=== PATIENT | female | born 1975 | race Caucasian/White ===

== ENCOUNTER 2017-02-14 12:54 | Emergency (ER) | payer OTHER ==
[2017-02-14 13:21] VITALS: RESP 16
[2017-02-14] MEDS ORDERED: predniSONE 20 MG TAB PO STA (14:23)
--- NOTE | 2017-02-14 14:26 | ED ---
ENT HPI - General Chief complaint: ENT Stated complaint: ENT Time Seen by Provider: 02/14/17 14:19 Source: patient Mode of arrival: ambulatory Limitations: no limitations - History of Present Illness Initial comments: This 41-year-old white female presents complaining of a sore throat and left earache which is been present for 3 days. She denies any fevers. She has had an occasional cough. She's had increased pain with any swallowing or eating. She denies any previous similar incidents. No other complaints or modifying factors. - Related Data Home Medications Medication Instructions Recorded Confirmed Cetirizine HCl [Zyrtec] 10 mg PO DAILY@2130 02/14/17 02/14/17 FLUoxetine HCL [PROzac] 20 mg PO DAILY@212902/14/17 02/14/17 Ibuprofen [Motrin] 800 mg PO Q6HR PRN 02/14/17 02/14/17 Lisinopril [Zestril] 20 mg PO DAILY@0 02/14/17 02/14/17 Previous Rx's Medication Instructions Recorded Amoxicillin 500 mg PO Q8H #30 capsule 02/14/17 predniSONE 20 mg PO BID #10 tab 02/14/17 Allergies Allergy/AdvReac Type Severity Reaction Status Date / Time No Known Allergies Allergy Verified 02/14/17 14:18 Review of Systems ROS Statement: Those systems with pertinent positive or pertinent negative responses have been documented in the HPI. ROS Other: All systems not noted in ROS Statement are negative. Past Medical History Past Medical History: Hypertension Additional Past Medical History / Comment(s): allergies History of Any Multi-Drug Resistant Organisms: None Reported Past Surgical History: Tubal Ligation Past Psychological History: Depression Smoking Status: Current every day smoker Past Alcohol Use History: Rare Past Drug Use History: None Reported General Exam Limitations: no limitations Head exam: Present: atraumatic, normocephalic Eye exam: Present: normal appearance ENT exam: Present: mucous membranes moist, TM's normal bilaterally, other ( Posterior oropharynx is erythematous. No exudates noted. No peritonsillar abscess identified.) Neck exam: Present: normal inspection, lymphadenopathy. Absent: meningismus Respiratory exam: Present: normal lung sounds bilaterally. Absent: respiratory distress Cardiovascular Exam: Present: regular rate, normal rhythm Psychiatric exam: Present: normal affect, normal mood Skin exam: Present: intact. Absent: rash Course Vital Signs 02/14/17 13:18 Temperature 99.7 F H Pulse Rate 96 Respiratory 16 Rate Blood Pressure 116/74 O2 Sat by Pulse 97 Oximetry Medical Decision Making - Medical Decision Making The patient was seen and examined. It appears that she does have a pharyngitis but there is no evidence of otitis media at this time. It is felt as though she benefit from the following disposition and leaves in no distress. Disposition Clinical Impression: Pharyngitis Disposition: HOME SELF-CARE Condition: Good Instructions: Pharyngitis (ED) Additional Instructions: You also may take Tylenol and/or Motrin if needed for any pain or fever. Prescriptions: Amoxicillin 500 mg PO Q8H #30 capsule predniSONE 20 mg PO BID #10 tab Referrals: Alysia Shaw MD [Primary Care Provider] - 1-2 days Time of Disposition: 14:26
[2017-02-14 14:39] VITALS: BP 118/75; PULSE 85; TEMP 97.1
== END 2017-02-14 14:46 | disposition home or self-care (01) ==
LOC: EC 12:54
DX: J02.9 Acute pharyngitis, unspecified (principal); H92.02 Otalgia, left ear; I10 Essential (primary) hypertension; F32.9 Major depressive disorder, single episode, unspecified; F17.200 Nicotine dependence, unspecified, uncomplicated; Z79.899 Other long term (current) drug therapy
CPT/HCPCS: 99282; J7512